=== PATIENT | male | born 1960 | race Caucasian/White ===

== ENCOUNTER 2018-04-05 12:46 | Inpatient (IN) | payer OTHER ==
[2018-04-05] MEDS ORDERED: ONDANSETRON 4 MG/2 ML VIAL ONE ×2 (13:05→18:36)
[2018-04-05] MEDS ORDERED: HYDROmorphONE/DILAUDID 1 MG/ML INJ ONE (13:05)
[2018-04-05] MEDS ORDERED: HYDROmorphONE/DILAUDID 2 MG/ML INJ IVP ONE (13:06)
[2018-04-05] MEDS ORDERED: NS 1,000 ML IV ONE ×2 (13:06→13:26)
[2018-04-05] MEDS ORDERED: ONDANSETRON 4 MG/2 ML VIAL IVP ONE (13:06)
--- NOTE | 2018-04-05 13:26 | EDPHY ---
HPI/HX/ROS/PE/MDM Narrative: CHIEF COMPLAINT: Abdominal pain, groin pain HPI: The patient is a 57 y/o male arriving with his complaining of severe constant right lower quadrant abdominal pain and groin pain onset last night. No fever, urinary symptoms, vomiting, diarrhea. Dr. Zimmerman, surgeon, assessed patient in the office and believes patient has an incarcerated hernia and needs to be taken to surgery. Dr. Zimmerman does not recommend imaging and will admit patient with plan to take him to the OR as soon as there is an available slot today. No history of diabetes, cardiac disease, hypertension. REVIEW OF SYSTEMS: A comprehensive 10 system review of systems is otherwise negative aside from elements mentioned in the history of present illness. PMH: Denies SOCIAL HISTORY: at bedside. Lives in [place]. Employed. PHYSICAL EXAM: General:Patient is alert, appears uncomfortable. ENT:Eyes are normal to inspection. ENT inspection normal. Neck: Normal inspection. Full range of motion. Respiratory:No respiratory distress. Breath sounds normal bilaterally. Cardiovascular: Regular rate and rhythm. Strong peripheral pulses. Normal cap refill. Abdomen:The abdomen is nontender to palpation. There are no peritoneal signs. : Right inguinal region intensely swollen and tender to palpation. Back: Normal to inspection. No tenderness to palpation. Skin: Normal color. Patchy erythematous rash primarily to right medial thigh also extending to left medial thigh and RLQ. Warm and dry. Extremities: Normal appearance. Full range of motion. Neuro: Oriented x3. Normal motor function. Normal sensory function. ED Course: This is an uncomfortable-appearing 57 y/o male with no reported prior medical history who presents with acute onset constant RLQ/groin pain. Dr. Zimmerman has already assessed patient and believes he has an incarcerated hernia that will require surgery today. The patient's right inguinal region is intensely swollen and tender to palpation. There are patchy erythematous areas along medial thighs and lower abdomen as well. Consulted with Dr. Zimmerman and he plans to admit to the OR - he does not think patient requires imaging. Plan for IV, labs, and symptomatic management while in the ED. 2L IV NS, 1mg IV Dilaudid , 4mg IV Zofran ordered. Additional 50mcg IV Fentanyl ordered. - Data Points Medications Given: Discontinued Medications Hydromorphone HCl (Dilaudid) 1 mg IVP EDNOW ONE Stop: 04/05/18 13:07 Last Admin: 04/05/18 13:08 Dose: 1 mg Sodium Chloride (Ns) 1,000 mls @ 0 mls/hr IV ONCE ONE PRN Reason: Wide Open Stop: 04/05/18 13:07 Last Admin: 04/05/18 13:08 Dose: 1,000 mls Ondansetron HCl (Zofran) 4 mg IVP EDNOW ONE Stop: 04/05/18 13:07 Last Admin: 04/05/18 13:08 Dose: 4 mg General Time Seen by Provider: 04/05/18 12:50 Initial Vital Signs: Initial Vital Signs Temperature (C) 37.3 C 04/05/18 12:55 Heart Rate 104 H 04/05/18 12:55 Respiratory Rate 16 04/05/18 12:55 Blood Pressure 147/85 H 04/05/18 12:55 O2 Sat (%) 92 04/05/18 12:55 O2 Delivery Mode Room Air O2 (L/minute) 3 Allergies/Adverse Reactions: No Known Allergies Allergy (Verified 04/05/18 13:38) Home Medications: Medication Instructions Recorded Ibuprofen [Motrin (*)] 200 mg PO TID PRN 04/05/18 oxyCODONE IR [Oxycodone Ir (*)] 5 - 10 mg PO Q4HRS PRN #30 tab 04/06/18 Departure - Departure Disposition: [facility] Inpatient Acute Clinical Impression: Inguinal pain Qualifiers: Laterality: right Qualified Code(s): R10.31 - Right lower quadrant pain Condition: Fair Report Scribed for: Alberto Olivera Report Scribed by: Krystal Shah Date of Report: 04/05/18 Time of Report: 13:26 Physician Review and Approval Statement: Portions of this note were transcribed by an ED scribe. I personally performed the history, physical exam, and medical decision making; and confirm the accuracy of the information in the transcribed note.
[2018-04-05] MEDS: fentaNYL 100 MCG/2 ML INJ IVP PRN ×3 (13:29→20:37)
--- NOTE | 2018-04-05 13:49 | PDGENHP ---
History and Physical - Chief Complaint Right groin pain and vomiting - History of Present Illness This is a 49-year-old gentleman with a history of left inguinal hernia repaired many years ago who presents with 3 months history of a right groin bulge. Acute exacerbation of this size now going into the scrotum unable to reduce with pain and vomiting. Minimal flatus and bowel movement over the last 12 hr. Patient said the symptoms started last night and of gotten progressively worse. He has pain on any movement. He has been able to urinate just a little bit today. Past medical history is not significant. Past surgical history includes laparotomy for trauma with splenectomy as well as left inguinal hernia repair. History Information - Allergies/Home Medication List Allergies/Adverse Reactions: No Known Allergies Allergy (Verified 04/05/18 13:38) Home Medications: Ibuprofen [Motrin (*)] 200 mg PO TID PRN 04/05/18 [Last Taken Unknown] I have personally reviewed and updated: family history, medical history, social history, surgical history - Past Medical History no pertinent PMH - Surgical History Reports: hernia repair (Left inguinal, splenectomy for trauma) - Family History Positive for: non-pertinent - Social History Smoking Status: Current every day smoker Alcohol Use: Other (3 times a week after work) Review of Systems Review of Systems: ROS: 2-9 pt reviewed & negative except for what was stated in HPI & below Constitutional: Denies: fever, weight loss Gastrointestinal: Reports: vomitting, abdominal pain Genitourinary: Reports: pain Muscolosketal: Reports: no symptoms Skin: Reports: rash Neurological: Reports: no symptoms Hematologic/Lymphatic: Reports: no symptoms Physical Exam Physical Exam: Alert obvious distress due to right groin pain. Sclerae anicteric Oropharynx moist, edentulous Regular rate and rhythm Clear to auscultation bilaterally Abdomen mildly distended rash on the left side of his abdomen, no hepatosplenomegaly Right groin hernia incarcerated tender to palpation unable to reduce No left groin hernia Bilateral pedal edema with varices Right upper leg rash hives no mottling Normal affect and mood Temp Pulse Resp BP Pulse Ox 37.3 C 97 18 155/98 H 98 04/05/18 12:55 04/05/18 13:42 04/05/18 13:42 04/05/18 13:42 04/05/18 13:42 O2 (L/minute) 2 Lab Data & Imaging Review Awaiting CBC and chemistry profile Imaging Review: No images required Assessment & Plan Assessment: Inguinal pain (Acute) Incarcerated right inguinal hernia Tobacco use disorder Bilateral pedal edema Plan: Emergency exploration likely right coring hernia repair. Possible bowel resection and laparotomy have been outlined with the patient. The risks benefits and alternatives been outlined to the patient clearly. All questions were answered. Verbal confirmation of understanding prior to written consent had been obtained.
[2018-04-05] MEDS ORDERED: ceFAZolin 2 GM/DEXTROSE 100 ML IV ONE (13:50)
[2018-04-05] MEDS ORDERED: HYDROmorphONE/DILAUDID 1 MG/ML INJ IVP PRN (13:51)
[2018-04-05] MEDS ORDERED: LR 1,000 ML IV SCH ×2 (14:00→20:00)
[2018-04-05 14:26] LABS: PLATELET COUNT 380 10^3/uL (150-400)
[2018-04-05] MEDS ORDERED: LR 1,000 ML IV ONE (15:49)
[2018-04-05] MEDS ORDERED: LIDOCAINE 1% 300 MG/30 ML SDV ONE (16:03)
[2018-04-05] MEDS ORDERED: BUPIVACAINE 0.5% 30 ML SDV ONE (16:03)
[2018-04-05] MEDS ORDERED: MIDAZOLAM 2 MG/2 ML VIAL IVP ONE (16:05)
--- NOTE | 2018-04-05 16:05 | PDANEPAE ---
ANE History of Present Illness strangulated hernia right inguinal ANE Past Medical History - Cardiovascular History Hx Hypertension: No Hx Arrhythmias: No Hx Chest Pain: No Hx Coronary Artery / Peripheral Vascular Disease: No Hx CHF / Valvular Disease: No Hx Palpitations: No - Pulmonary History Hx COPD: No Hx Asthma/Reactive Airway Disease: No Hx Recent Upper Respiratory Infection: No Hx Oxygen in Use at Home: No Hx Sleep Apnea: No Sleep Apnea Screening Result - Last Documented: Negative - Endocrine History Hx Diabetes: No Hypothyroid: No Hyperthyroid: No Obesity: mild - Renal History Hx Renal Disorders: No - Liver History Hx Hepatic Disorders: No - Neurological & Psychiatric Hx Hx Neurological and Psychiatric Disorders: No - Cancer History Hx Cancer: No - Congenital Disorder History Hx Congenital Disorders: No - GI History Hx Gastrointestinal Disorders: No - Chronic Pain History Chronic Pain: No - Surgical History Prior Surgeries: left inguinal hernia ANE Review of Systems Review of systems is: negative Review of Systems: - Exercise capacity METS (RN): 4 METS ANE Patient History - Allergies Allergies/Adverse Reactions: No Known Allergies Allergy (Verified 04/05/18 13:38) - Home Medications Home medications: home medication list seen and reviewed Home Medications: Ibuprofen [Motrin (*)] 200 mg PO TID PRN 04/05/18 [Last Taken 04/04/18] - NPO status NPO Status: no food or drink >8 hours NPO Since - Liquids (Date): 04/05/18 NPO Since - Liquids (Time): 07:00 NPO Since - Solids (Date): 04/04/18 NPO Since - Solids (Time): 20:00 - Anes Hx Anes Hx: no prior problems - Smoking Hx Smoking Status: Current every day smoker Marijuana use: No - Alcohol Use Alcohol Use: Occasionally - Family Anes Hx Family Anes Hx: none ANE Labs/Vital Signs - Labs Result Diagrams: 04/05/18 13:05 04/05/18 13:05 - Vital Signs Blood Pressure: 139/96 Heart Rate: 107 Respiratory Rate: 18 O2 Sat (%): 92 Height: 177.8 cm Weight: 106.594 kg ANE Physical Exam - Airway Neck exam: FROM Mallampati Score: Class 2 Mouth exam: normal dental/mouth exam - Pulmonary Pulmonary: no respiratory distress, clear to auscultation - Cardiovascular Cardiovascular: regular rate and rhythym, no murmur, rub, or gallop - ASA Status ASA Status: II, E ANE Anesthesia Plan Anesthesia Plan: general endotracheal anesthesia
[2018-04-05] MEDS ORDERED: fentaNYL 250 MCG/5 ML INJ ONE (17:39)
[2018-04-05] MEDS ORDERED: PROPOFOL 200 MG/20 ML VIAL ONE (17:39)
[2018-04-05] MEDS ORDERED: LIDOCAINE 2% 5 ML SDV ONE (17:41)
[2018-04-05] MEDS ORDERED: DEXAMETHASONE 4 MG/ML VIAL ONE (17:50)
--- NOTE | 2018-04-05 18:07 | POSTANESTH ---
Post Anesthetic Evaluation Cardiovascular Status: Normal, Stable Respiratory Status: Normal, Stable Level of Consciousness/Mental Status: Can Participate in Eval Pain Control: Adequate, Prn Tx Ordered Nausea/Vomiting Control: Adequate, Prn Tx Ordered Complications Possibly Related to Anesthesia: None Noted
[2018-04-05] MEDS ORDERED: DEXMEDETOMIDINE HCL 200 MCG/2 ML VIAL IV ONE (18:24)
[2018-04-05] MEDS ORDERED: KETOROLAC 30 MG/1 ML SDV ONE (19:10)
[2018-04-05] MEDS ORDERED: NEOSTIGMINE METHYLSULFATE 5 MG/5 ML SYR ONE (19:25)
[2018-04-05] MEDS ORDERED: GLYCOPYRROLATE 0.2 MG/1 ML VIAL ONE (19:25)
[2018-04-05] MEDS ORDERED: ZOLPIDEM TARTRATE 5 MG TAB PO PRN (19:40)
[2018-04-05] MEDS ORDERED: ONDANSETRON 4 MG/2 ML VIAL IVP PRN (19:40)
[2018-04-05] MEDS ORDERED: NALOXONE HCL 0.4 MG/ML INJ IVP PRN (19:42)
--- NOTE | 2018-04-05 19:42 | POSTOPPROG ---
Post Op Note Date of Operation: 04/05/18 Surgeon: Joni Zimmerman Can Piler: Ciara North PAC Anesthesiologist: Jenae Anesthesia: GET(General Endotracheal) Pre-op Diagnosis: Incarcerated inguinal hernia Post-op Diagnosis: same Procedure: Open right inguinal hernia repair Findings: viable sm and bladder Inf/Abcess present in the surg proc area at time of surgery?: No
[2018-04-05] MEDS ORDERED: fentaNYL 100 MCG/2 ML INJ ONE (19:50)
[2018-04-05] MEDS ORDERED: HYDROmorphONE/DILAUDID 2 MG/ML INJ ONE (19:50)
[2018-04-05] MEDS: HYDROmorphONE/DILAUDID 2 MG/ML INJ IVP PRN ×4 (19:54→20:37)
[2018-04-05] MEDS: oxyCODONE IR 5 MG TAB PO PRN (20:03)
[2018-04-05] MEDS ORDERED: oxyCODONE IR 5 MG TAB ONE (20:03)
[2018-04-05] MEDS: KETOROLAC 15 MG/1 ML SDV IVP SCH (23:19)
[2018-04-06] MEDS: oxyCODONE IR 5 MG TAB PO PRN ×5 (01:09→21:35)
--- NOTE | 2018-04-06 03:47 | GOP ---
[f rep st] OPERATIVE REPORT DATE OF OPERATION: SURGEON: Joni Zimmerman MD CAMPUS SAFETY OFFICER: Ciara North PA-C. ANESTHESIA: General endotracheal anesthesia was used. ANESTHESIOLOGIST: Dr. Emanuel. PREOPERATIVE DIAGNOSIS: Incarcerated inguinal hernia. POSTOPERATIVE DIAGNOSIS: Incarcerated inguinal hernia with small-bowel and bladder within the hernia sac. There is congestion of the bowel, but there is no ischemic process apparent. PROCEDURE PERFORMED: Open inguinal hernia repair with Phasix mesh. FINDINGS: Findings again are viable small-bowel and bladder within a 3 cm indirect inguinal hernia. SPECIMENS: There were no specimens. INDICATIONS: This is a 57-year-old gentleman who presents to the hospital with incarcerated inguinal hernia, possible skin strangulation, white blood cell count of 25,000 with a left shift. Of note, h e also has an elevated potassium of 5.3 and glucose of 194. The patient claims not to have any previ ous medical problems. DESCRIPTION OF PROCEDURE: The patient was brought into the operating room. After induction of endot conrado anesthesia in supine position the abdomen was prepped with chlorhexidine and the scrotum and perineum were prepped with Betadine. Time-out procedure was then performed according to institutiona l standards. Local anesthetic was infused in the skin and subcutaneous tissues as well as a field bl ock on the right side. Open incision was made, deepened with electrocautery. Hyperemia of the tissues was noted. The herni a sac is contained in the tunic vaginalis with the testicle on the right. This was all brought in th e field of dissection. The testicle is viable and it is dissected from the tunica vaginalis and from the cord structures with careful sharp and electrocautery dissection. After inspecting the hernia contents, the bladder was then reintroduced to the abdomen after which th e small-bowel was inspected and allowed to pink up. There was no obvious ischemia that was noted. A lthough the vessels are somewhat congested, they are still patent. There are pulses within the mesen andrea and the bowel pinked up nicely. It is then reintroduced into the abdominal cavity. The defect is not able to be closed and a bridge Phasix mesh was then used to close the gap in a Lich tenstein fashion. Then 2-0 Vicryl was used to approximate it to the pubic tubercle, the shelving edg e of the inguinal ligament, the transversalis muscle superiorly, and the leaves are reapproximated ar ound the cord to allow the passage of 1 finger tip, but not too tight to cause strangulation of the c ord. After inspection, the testicle was reintroduced to the scrotum. Hemostasis assured. Needle, i nstrument, and sponge counts were verified to be correct. The incision was closed in layers using 2-0 and 3-0 Polysorb and 4-0 Monocryl. Dermabond was applied . The patient awakened, extubated, and taken to the recovery room in stable condition. No immediate co mplications. /[id number]/MODL
[2018-04-06] MEDS: KETOROLAC 15 MG/1 ML SDV IVP SCH ×4 (05:07→23:02)
--- NOTE | 2018-04-06 09:01 | SOAPPROG ---
SOAP Progress Note Assessment/Plan: Assessment/Plan: Postop day 1. Status post open right inguinal hernia repair with face 6 mesh for incarceration of the bladder and small bowel within the internal were hernia defect. The patient is doing fairly well. He does have pain as expected. His abdominal pain has decreased overnight. And he is tolerating clear liquids. Abdomen soft distended. His P nontender no peritoneal signs. A groin incision clean dry and intact expected swelling and minimal ecchymosis Extremities with mild edema Overall doing well status post right inguinal herniorrhaphy Plan discharge tomorrow. Prescriptions written. May be able to go later today if pain is controlled. 04/06/18 08:59 Objective: Vital Signs Temp Pulse Resp BP Pulse Ox 36.6 C 82 20 134/88 H 94 04/06/18 07:38 04/06/18 07:38 04/06/18 07:38 04/06/18 07:38 04/06/18 07:38 04/05/18 04/06/18 04/07/18 05:59 05:59 05:59 Intake Total 2420 557 Output Total 400 Balance 2020 557 PT REJ 04/05/18 13:05 INR REJ 04/05/18 13:05 ICD10 Worksheet Patient Problems: Problems Problem Status Onset Inguinal pain Acute
--- NOTE | 2018-04-06 11:13 | ASMTCMCOM ---
CM Note CM Note Notes: 04/06/2018 Case Management Note Pt admitted for incarcerated hernia. Surgery yesterday. There are no case management d/c needs identified d/t pt age, marital status, employment status and independence with ADL's prior to admission. There are no therapy evals ordered at this time. Case Management d/c poc: Independent with follow up as directed. Case Management available if needs change. Date Signed: 04/06/2018 11:12 AM Electronically Signed By:Wendy Fields RN
[2018-04-06] MEDS: HYDROmorphONE/DILAUDID 1 MG/ML INJ IVP PRN ×2 (14:29→21:32)
[2018-04-06] MEDS: METOCLOPRAMIDE 10 MG/2 ML VIAL IVP PRN (21:32)
[2018-04-07] MEDS: oxyCODONE IR 5 MG TAB PO PRN ×5 (03:26→22:05)
[2018-04-07] MEDS: METOCLOPRAMIDE 10 MG/2 ML VIAL IVP PRN ×2 (03:35→19:15)
[2018-04-07] MEDS: KETOROLAC 15 MG/1 ML SDV IVP SCH ×4 (05:47→23:45)
--- NOTE | 2018-04-07 07:55 | SOAPPROG ---
SOAP Progress Note Assessment/Plan: Assessment:c/o pain - min ambulation yesterday. nausea overnight. min po. avss. comfortable when lying still. incis with notable erythema today and approp swelling/induration. s/p incar RIH repair. postop ileus. restart IVF. add ancef for possible incis erythema (vs evolving ecchymosis). not ready for discharge. cont supportive care. Plan: 04/07/18 07:54 Objective: Vital Signs Temp Pulse Resp BP Pulse Ox 36.6 C 89 16 143/93 H 88 L 04/07/18 07:51 04/07/18 07:51 04/07/18 07:51 04/07/18 07:51 04/07/18 07:51 04/06/18 04/07/18 04/08/18 05:59 05:59 05:59 Intake Total 2420 3057 Output Total 400 Balance 2019 3057 PT REJ 04/05/18 13:05 INR REJ 04/05/18 13:05 ICD10 Worksheet Patient Problems: Problems Problem Status Onset Inguinal pain Acute
[2018-04-07] MEDS ORDERED: D5W 1/2 NS W/ 20 KCl/L 1,000 ML IV SCH (08:00)
[2018-04-07] MEDS: NS 1,000 ML IV SCH ×2 (09:08→18:43)
[2018-04-07] MEDS: ceFAZolin 2 GM/DEXTROSE 100 ML IV SCH ×3 (09:08→21:56)
[2018-04-07] MEDS: ENOXAPARIN 40 MG/0.4 ML SYR SC SCH (09:09)
[2018-04-07] MEDS: HYDROmorphONE/DILAUDID 1 MG/ML INJ IVP PRN ×4 (09:25→18:43)
--- NOTE | 2018-04-07 11:42 | PDMN ---
Medical Necessity Medical necessity: MCG: M200 ileus: pt admitted abd pain OP: open R inguinal hernia repair- POD# 2 - difficult evening, with increased pain min pO, min. ambulation, N. overnight, poss post op ileus, poss incision erythema ( vs. evolving ecchymosis) restart IVF, IV ABX , additional supportive care- status changed to INPT 04/07/18 for ongoing med nec > 2 MN. pt not ready for DC.
[2018-04-07] MEDS: ONDANSETRON 4 MG/2 ML VIAL IVP PRN (22:01)
[2018-04-07] MEDS: PROMETHAZINE HCL 25 MG/ML INJ IVP PRN (23:51)
[2018-04-08] MEDS: oxyCODONE IR 5 MG TAB PO PRN ×5 (02:07→19:37)
[2018-04-08] MEDS: KETOROLAC 15 MG/1 ML SDV IVP SCH ×4 (05:55→23:11)
[2018-04-08] MEDS: ceFAZolin 2 GM/DEXTROSE 100 ML IV SCH ×3 (05:56→22:19)
[2018-04-08] MEDS: ONDANSETRON 4 MG/2 ML VIAL IVP PRN ×2 (06:02→22:19)
[2018-04-08] MEDS: ENOXAPARIN 40 MG/0.4 ML SYR SC SCH (08:14)
--- NOTE | 2018-04-08 08:23 | SOAPPROG ---
SOAP Progress Note Assessment/Plan: Assessment:nausea and vomiting last casimiro - feeling slightly better today. + flatus. AVSS. comfortable, skin color better. abd soft, dist. incis with less erythema and swelling today. slow progress s/p incarc RIH repair. cont supportive care today. cont Ancef for now - will reassess need for continuation in am. anticipate dc tomorrow if tolerating po/ileus further resolved. c/o pain - min ambulation yesterday. nausea overnight. min po. avss. comfortable when lying still. incis with notable erythema today and approp swelling/induration. s/p incar RIH repair. postop ileus. restart IVF. add ancef for possible incis erythema (vs evolving ecchymosis). not ready for discharge. cont supportive care. Plan: 04/07/18 07:54 04/08/18 08:21 Objective: Vital Signs Temp Pulse Resp BP Pulse Ox 36.8 C 75 18 120/86 H 94 04/08/18 07:33 04/08/18 07:33 04/08/18 07:33 04/08/18 07:33 04/08/18 07:33 04/07/18 04/08/18 04/09/18 05:59 05:59 05:59 Intake Total 2931 Output Total 600 Balance 2331 PT REJ 04/05/18 13:05 INR REJ 04/05/18 13:05 ICD10 Worksheet Patient Problems: Problems Problem Status Onset Inguinal pain Acute
[2018-04-09] MEDS: oxyCODONE IR 5 MG TAB PO PRN ×5 (01:26→23:57)
[2018-04-09] MEDS: ONDANSETRON 4 MG/2 ML VIAL IVP PRN (03:27)
[2018-04-09] MEDS: KETOROLAC 15 MG/1 ML SDV IVP SCH ×4 (05:07→23:56)
[2018-04-09] MEDS: ceFAZolin 2 GM/DEXTROSE 100 ML IV SCH ×3 (06:34→22:43)
[2018-04-09] MEDS: ENOXAPARIN 40 MG/0.4 ML SYR SC SCH (08:03)
[2018-04-09] MEDS: PROMETHAZINE HCL 25 MG/ML INJ IVP PRN ×2 (08:03→19:30)
[2018-04-09] MEDS: HYDROmorphONE/DILAUDID 1 MG/ML INJ IVP PRN ×2 (08:03→22:43)
--- NOTE | 2018-04-09 09:57 | ASMTCMCOM ---
CM Note CM Note Notes: CM reviewed chart. PT worked w/ pt today and has cleared him to d/c home without any needs. CM available for changes. Plan: Independent Date Signed: 04/09/2018 09:56 AM Electronically Signed By:KWADWO Fuentes
--- NOTE | 2018-04-09 16:27 | SOAPPROG ---
SOAP Progress Note Assessment/Plan: Assessment/Plan: Postop day 4. Status post open right inguinal hernia repair with Phasix mesh for incarceration of the bladder and small bowel within the internal were hernia defect. The patient is doing fairly well. He does have pain as expected. His abdominal pain has decreased overnight. And he is tolerating clear liquids. Abdomen soft distended. ABD: nontender no peritoneal signs. Groin incision clean dry and intact expected swelling and minimal ecchymosis Extremities with mild edema Overall doing well status post right inguinal herniorrhaphy Plan discharge tomorrow. Prescriptions written. May be able to go later today if pain is controlled. 04/06/18 08:59 04/09/18 16:26 Objective: Vital Signs Temp Pulse Resp BP Pulse Ox 37.3 C 72 18 145/75 H 92 04/09/18 15:59 04/09/18 15:59 04/09/18 15:59 04/09/18 15:59 04/09/18 15:59 04/08/18 04/09/18 04/10/18 05:59 05:59 05:59 Intake Total 2931 100 300 Output Total 600 400 Balance 2331 -300 300 PT REJ 04/05/18 13:05 INR REJ 04/05/18 13:05 ICD10 Worksheet Patient Problems: Problems Problem Status Onset Inguinal pain Acute
[2018-04-10] MEDS: oxyCODONE IR 5 MG TAB PO PRN ×3 (04:17→15:29)
[2018-04-10] MEDS ORDERED: POTASSIUM CL 20 MEQ TAB PO ONE ×2 (06:15→10:00)
[2018-04-10 06:30] LABS: PLATELET COUNT 358 10^3/uL (150-400)
[2018-04-10] MEDS ORDERED: MAGNESIUM SULF 2 GM/WATER 50 ML IV ONE (06:30)
[2018-04-10] MEDS: KETOROLAC 15 MG/1 ML SDV IVP SCH ×2 (06:31→12:10)
[2018-04-10] MEDS: ceFAZolin 2 GM/DEXTROSE 100 ML IV SCH ×2 (06:31→14:39)
--- NOTE | 2018-04-10 06:48 | PDHOSCONS ---
History and Physical - Chief Complaint Tachycardia - History of Present Illness 57 yo M admitted for R inguinal hernia repair developed brief episode of SVT on 04/10; hospital medicine consulted for evaluation of this. The patient denies prior cardiac history or history of arrhythmias. However, he does not see his doctor frequently. He is a long-time smoker (20+ years) and obese. He tells me he was having mild GI discomfort, possibly indigestion, when alarms went off and many team members ran into the room. He denies any significant symptoms during this period, including chest pain, diaphoresis, and shortness of breath. Per report the patient exhibited heart rate of ~220, which spontaneously terminated with belching. Unfortunately the rhythm was not captured on telemetry. An ECG obtained after the episode demonstrates sinus rhythm and bifascicular block. During my evaluation the patient is asymptomatic. History Information - Allergies/Home Medication List Allergies/Adverse Reactions: No Known Allergies Allergy (Verified 04/05/18 13:38) Home Medications: Ibuprofen [Motrin (*)] 200 mg PO TID PRN 04/05/18 [Last Taken 04/04/18] I have personally reviewed and updated: family history, medical history - Past Medical History no pertinent PMH - Surgical History Reports: hernia repair (Left inguinal, splenectomy for trauma) - Family History Positive for: CAD (Mother in her 80's recently had stent placed) - Social History Smoking Status: Current every day smoker Alcohol Use: Occasionally Review of Systems Review of Systems: Physical Exam Physical Exam: Temp Pulse Resp BP Pulse Ox 36.7 C 80 20 139/94 H 91 L 04/10/18 06:12 04/10/18 06:12 04/10/18 06:12 04/10/18 06:12 04/10/18 06:12 O2 (L/minute) 1 Lab Data & Imaging Review 04/10/18 05:40 04/10/18 05:40 WBC 9.44 10^3/uL (3.80-9.50) 04/10/18 05:40 RBC 5.23 10^6/uL (4.40-6.38) 04/10/18 05:40 Hgb 17.1 g/dL (13.7-17.5) 04/10/18 05:40 POC Hgb 18.4 gm/dL (13.7-17.5) H 04/10/18 05:41 Hct 50.1 % (40.0-51.0) 04/10/18 05:40 POC Hct 54 % (40-51) H 04/10/18 05:41 MCV 95.8 fL (81.5-99.8) 04/10/18 05:40 MCH 32.7 pg (27.9-34.1) 04/10/18 05:40 MCHC 34.1 g/dL (32.4-36.7) 04/10/18 05:40 RDW 13.4 % (11.5-15.2) 04/10/18 05:40 Plt Count 358 10^3/uL (150-400) 04/10/18 05:40 MPV 10.2 fL (8.7-11.7) 04/10/18 05:40 Neut % (Auto) 63.2 % (39.3-74.2) 04/10/18 05:40 Lymph % (Auto) 15.6 % (15.0-45.0) 04/10/18 05:40 Bailey % (Auto) 19.5 % (4.5-13.0) H 04/10/18 05:40 Eos % (Auto) 1.1 % (0.6-7.6) 04/10/18 05:40 Baso % (Auto) 0.2 % (0.3-1.7) L 04/10/18 05:40 Nucleat RBC Rel Count 0.0 % (0.0-0.2) 04/10/18 05:40 Absolute Neuts (auto) 5.97 10^3/uL (1.70-6.50) 04/10/18 05:40 Absolute Lymphs (auto) 1.47 10^3/uL (1.00-3.00) 04/10/18 05:40 Absolute Monos (auto) 1.84 10^3/uL (0.30-0.80) H 04/10/18 05:40 Absolute Eos (auto) 0.10 10^3/uL (0.03-0.40) 04/10/18 05:40 Absolute Basos (auto) 0.02 10^3/uL (0.02-0.10) 04/10/18 05:40 Absolute Nucleated RBC 0.00 10^3/uL (0-0.01) 04/10/18 05:40 Immature Gran % 0.4 % (0.0-1.1) 04/10/18 05:40 Immature Gran # 0.04 10^3/uL (0.00-0.10) 04/10/18 05:40 RBC/WBC/PLT Morphology TNP 04/10/18 05:40 Platelet Estimate TNP 04/10/18 05:40 PT REJ 04/05/18 13:05 INR REJ 04/05/18 13:05 APTT REJ 04/05/18 13:05 POC Sodium 135 mEq/L (135-145) 04/10/18 05:41 Sodium 132 mEq/L (135-145) L 04/10/18 05:40 POC Potassium 3.3 mEq/L (3.3-5.0) 04/10/18 05:41 Potassium 3.8 mEq/L (3.5-5.2) 04/10/18 05:40 POC Chloride 96 mEq/L (97-110) L 04/10/18 05:41 Chloride 97 mEq/L (97-110) 04/10/18 05:40 Carbon Dioxide 25 mEq/l (22-31) 04/10/18 05:40 POC Total CO2 24 mEq/L (22-31) 04/10/18 05:41 Anion Gap 10 mEq/L (6-14) 04/10/18 05:40 POC BUN 16 mg/dL (7-23) 04/10/18 05:41 BUN 18 mg/dL (7-23) 04/10/18 05:40 Creatinine 0.6 mg/dL (0.7-1.3) L 04/10/18 05:40 POC Creatinine 0.5 mg/dL (0.7-1.3) L 04/10/18 05:41 Estimated GFR > 60 04/10/18 05:40 Glucose 99 mg/dL (70-100) 04/10/18 05:40 POC Glucose 101 mg/dL (70-100) H 04/10/18 05:41 Calcium 8.6 mg/dL (8.5-10.4) 04/10/18 05:40 Magnesium 1.8 mg/dL (1.6-2.3) 04/10/18 05:40 Troponin I 0.034 ng/mL (0.000-0.034) 04/10/18 05:40 Visualized and Interpreted EKG results: Yes EKG Interpretation: Positive for: other (Bifascicular block) Assessment & Plan Assessment: 57 yo M admitted for repair of R inguinal hernia developed episode of SVT on . Plan: 1. SVT - Unfortunately, rhythm was not captured on telemetry or ECG prior to spontaneous termination. Noting rate of ~220 and spontaneous termination with vagal maneuver, AVRT or AVNRT are likely. He denies prior cardiac history. ECG suggests significant conduction disease with evidence of bifascicular block. - Monitor on telemetry - Maintain K>4, Mg>2 - Check cardiac enzymes, repeat ECG now - Will order echocardiogram for further evaluation - Noting spontaneous termination during first event, adenosine would be reasonable to try if SVT recurs 2. R inguinal hernia - s/p open repair on 04/05. - Management per surgery primary Thank you very much for this consult, the hospital medicine service will follow along with you.
--- NOTE | 2018-04-10 07:18 | SOAPPROG ---
SOAP Progress Note Assessment/Plan: Assessment:patient transferred to tele today am - isolated episode of self limited tachycardia (220) noted by nursing staff. patient notes that he belched and per nursing staff, his rate converted back to 70. he denied any chest pain or SOB during the episode. he was feeling well throughout the day and casimiro. he has had multiple episodes of otherwise asympt belching. mult bm. no abd c/o. approp incis pain. afebrile. 140/90 80 20 91% sat. up in bed, comfortable. heart reg. lungs with mild left basilar crackles. abd soft. incis clean. no erythema. swelling improved. k3.3. mg 1.8 (supple in progress x2). Tn neg. ECHO pending. EKG with bifasicular block. Isolated episode postop SVT (undocumented other than pulse ox). Apprec hospitalist consult. ECHO pending. Serial Tn. Final reccs pending course today. nausea and vomiting last casimiro - feeling slightly better today. +flatus. AVSS. comfortable, skin color better. abd soft, dist. incis with less erythema and swelling today. slow progress s/p incarc RIH repair. cont supportive care today. cont Ancef for now - will reassess need for continuation in am. anticipate dc tomorrow if tolerating po/ileus further resolved. c/o pain - min ambulation yesterday. nausea overnight. min po. avss. comfortable when lying still. incis with notable erythema today and approp swelling/induration. s/p incar RIH repair. postop ileus. restart IVF. add ancef for possible incis erythema (vs evolving ecchymosis). not ready for discharge. cont supportive care. Plan: 04/07/18 07:54 04/08/18 08:21 04/10/18 07:16 04/10/18 07:18 Objective: Vital Signs Temp Pulse Resp BP Pulse Ox 36.7 C 80 20 139/94 H 91 L 04/10/18 06:12 04/10/18 06:12 04/10/18 06:12 04/10/18 06:12 04/10/18 06:12 Laboratory Results 04/10/18 05:40 04/10/18 05:40 04/09/18 04/10/18 04/11/18 05:59 05:59 05:59 Intake Total 100 1330 Output Total 400 Balance -300 1330 PT REJ 04/05/18 13:05 INR REJ 04/05/18 13:05 ICD10 Worksheet Patient Problems: Problems Problem Status Onset Inguinal pain Acute
[2018-04-10] MEDS: ENOXAPARIN 40 MG/0.4 ML SYR SC SCH (08:22)
[2018-04-10] MEDS: HYDROmorphONE/DILAUDID 1 MG/ML INJ IVP PRN (10:33)
--- NOTE | 2018-04-10 12:51 | HOSPPROG ---
Hospitalist Progress Note Assessment/Plan: 57 yo M admitted for repair of R inguinal hernia developed episode of SVT on . Plan: 1. SVT - Unfortunately, rhythm was not captured on telemetry or ECG prior to spontaneous termination. Noting rate of ~220 and spontaneous termination with vagal maneuver, AVRT or AVNRT are likely. He denies prior cardiac history. ECG suggests significant conduction disease with evidence of bifascicular block. - Monitoring on telemetry, no significant events this AM - Maintain K>4, Mg>2 - Troponin 0.034 last evening, 0.031 this AM - TTE pending - Noting spontaneous termination during first event, adenosine would be reasonable to try if SVT recurs 2. R inguinal hernia - s/p open repair on 04/05. - Management per surgery primary Thank you very much for this consult, the hospital medicine service will follow along with you. Subjective: Patient denies any chest pain, SOB, palpitations this AM Objective: Vital Signs Temp Pulse Resp BP Pulse Ox 36.7 C 78 18 115/76 91 L 04/10/18 11:56 04/10/18 11:56 04/10/18 11:56 04/10/18 11:56 04/10/18 11:56 Laboratory Results 04/10/18 05:40 04/10/18 05:40 04/09/18 04/10/18 04/11/18 05:59 05:59 05:59 Intake Total 100 1330 400 Output Total 400 Balance -300 1330 400 PT REJ 04/05/18 13:05 INR REJ 04/05/18 13:05 - Physical Exam Constitutional: no apparent distress Eyes: PERRL Ears, Nose, Mouth, Throat: moist mucous membranes Cardiovascular: regular rate and rhythym Respiratory: no respiratory distress Gastrointestinal: soft, non-tender abdomen Skin: warm Musculoskeletal: full muscle strength Neurologic: AAOx3 Psychiatric: interacting appropriately ICD10 Worksheet Patient Problems: Problems Problem Status Onset Inguinal pain Acute
--- NOTE | 2018-04-10 14:01 | ECHO ---
[email or web address] [address] Main: [phone] Fax: Transthoracic Echocardiogram Name: GAYE HALE MR#: [id number] Study Date: 04/10/2018 Study Time: 07:33 AM Date of : 1960 Age: 57 year(s) Height: 177.8 cm (70 in.) Weight: 106.6 kg (235 lb.) BSA: 2.24 m2 Gender: Male Examination: Echo Indication: SVT post op hernia surgery Image Quality: Technically Difficult Contrast: Requested by: Luke Wick BP: 139 mmHg/94 mmHg Heart Rate: Rhythm: Indication: SVT post op hernia surgery Procedure Staff Undercutter: Faye Quijano NATASHA Reading Physician: Hortensia Jackson MD Requesting Provider: Conclusions: Normal size left ventricle. Mild concentric LV hypertrophy. Global hypercontractility of the left ventricle. The ejection fraction is estimated to be 70-75 %. No regional wall motion abnormality. Normal size right ventricle. Normal RV function. No significant valvular disease. No prior echo Measurements: Chambers Valvular Assessment AV/MV Valvular Assessment TV/PV Normal Normal Normal Name Value Range Name Value Range Name Value Range Ao Magda (MM): 4.1 cm (2.2 cm-3.7 AV Vmax: 1.50 m/s (1 m/s-1.7 cm) m/s) IVSd (2D): 1.1 cm (0.6 cm-1.1 AV maxP mmHg ( - ) cm) AV meanP mmHg ( - ) LVDd (2D): 5.2 cm (4.2 cm-5.9 MV E Vmax: 0.85 m/s ( - ) cm) MV A Vmax: 1.17 m/s ( - ) LVDs (2D): 3.5 cm (2.1 cm-4 MV E/A: 0.73 ( - ) cm) LVPWd (2D): 1.2 cm (0.6 cm-1 cm) LVEF (MOD4): 84 % (>=55 %) EF Range: 70-75 % Continued Measurements: Chambers Valvular Assessment AV/MV Name Value Name Value Patient: GAYE HALE Study Date: 04/10/2018 Page 1 of 2 07:33 AM LADs: 4.7 cm MV E/E' Septal: 15.80 LADs Lon.6 cm MV E/E' Lateral: 21.80 LA Area: 21.9 cm2 LA Volume: 58 ml LA Volume Index: 25.9 ml/m2 Findings: Left Ventricle: Normal size left ventricle. Mild concentric LV hypertrophy. Global hypercontractility of the left ventricle. The ejection fraction is estimated to be 70-75 %. No regional wall motion abnormality. Unable to assess diastolic dysfunction. Right Ventricle: Normal size right ventricle. Normal RV function. Left Atrium: The left atrium is normal in size. Right Atrium: The right atrium is normal in size. Mitral Valve: The mitral valve is normal in appearance and function. Aortic Valve: The aortic valve is normal in appearance and function. Tricuspid Valve: Tricuspid valve not well visualized. Pulmonic Valve: Pulmonary valve not well visualized. Aorta: The aorta is normal. Pericardium: No pericardial effusion. (No Signature Object) Patient: GAYE HALE Study Date: 04/10/2018 Page 2 of 2 07:33 AM D:_[id number]
[2018-04-10 15:34] VITALS: BP 135/89
--- NOTE | 2018-04-10 16:53 | ASDISCHSUM ---
Discharge Information Plan Status:Home with No Needs Medically Cleared to Leave:04/09/2018 Discharge Date:04/09/2018 CM D/C Disposition:Home, Routine, Self-Care ADT D/C Disposition:Home, Routine, Self-Care Projected Discharge Date:04/09/2018 Transportation at D/C:Family Discharge Delay Reason: Follow-Up Date:04/09/2018 Discharge Slot: Final Diagnosis:inguinal hernia repair Placement Information Patient Contact Information Contact Name:DERRELL Relationship: Address:[address] Work Phone: City:[place] Alternate Phone: [facility]/Zip Code:[place] [address] Email: Financial Information Financial Class:Self-Pay Primary Plan Desc:SP UNINSURED Primary Plan Number:[id number] Secondary Plan Desc: Secondary Plan Number: Assessment Information LACE LACE Length of stay for Answers: 3 days current admission Acuity / Level of Answers: Yes Care: Did the patient have an inpatient admission? # of Emergency department Answers: 1-2 visits in the last 6 months Score: 7 Date Signed: 04/10/2018 04:52 PM Electronically Signed By:Salina Campuzano [facility] CM Progress Note CM Note CM Note Notes: 04/06/2018 Case Management Note Pt admitted for incarcerated hernia. Surgery yesterday. There are no case management d/c needs identified d/t pt age, marital status, employment status and independence with ADL's prior to admission. There are no therapy evals ordered at this time. Case Management d/c poc: Independent with follow up as directed. Case Management available if needs change. Date Signed: 04/06/2018 11:12 AM Electronically Signed By:Wendy Fields RN [facility] CM Progress Note CM Note CM Note Notes: CM reviewed chart. PT worked w/ pt today and has cleared him to d/c home without any needs. CM available for changes. Plan: Independent Date Signed: 04/09/2018 09:56 AM Electronically Signed By:KWADWO Fuentes Case Management Discharge Plan Note Case Management Discharge Discharge Order Complete? Answers: Yes Patient to Obtain Answers: Independently Medications Transportation Arranged Answers: Family/Friends Transport will Pick (Date 04/10/2018 05:00 PM & Time) Family Notified Answers: Yes Notes: by pt Discharge Comments Notes: Pt to discharge home independently with support from . No CM needs noted at this time. Spoke with pt in the room. CM available should needs change. Date Signed: 04/10/2018 04:53 PM Electronically Signed By:Salina Campuzano Intervention Information
--- NOTE | 2018-04-10 18:38 | PDDCSUM ---
Discharge Summary Discharge Summary: This is a 57-year-old gentleman who was admitted on 04/05/2018 for incarcerated inguinal hernia. Principal diagnosis incarcerated inguinal hernia Principle procedures open right inguinal hernia repair with Phasix mesh. Findings were bladder and small bowel incarcerated within the hernia defect. Secondary complications in the hospital included S CT he was transferred to telemetry unit seen in consultation by Hospital Medicine EKG shows bifascicular bundle branch block. Troponins were negative. The patient refused stress test but echocardiogram did not show any wall motion abnormalities. Hospital course: The patient had been in the admitted on the day of surgery from the office. The patient underwent urgent surgery with findings of viable bowel. He was kept for persistent nausea hypoxia and pain control. The patient was advanced in diet and activity but on the day of discharge early in the morning had an episode of SVT which resolved with vagal episode the patient belched and his heart rate went back to 78 from 200s. Patient was discharged to home tolerated diet with oxycodone for pain all questions were addressed he is to follow up in the office in 1 week he is to call with concerns regarding his surgery or hospitalization or recurrence signs of cardiac issues. The patient verbalized his understanding prior to discharge. The patient may shower. He he is to refrain from lifting greater than 25 lb. He is to call with signs of infection such as temperature greater than 101.5 inability to eat persistent nausea or pain not controlled by medication.
== END 2018-04-10 17:18 | disposition home or self-care (01) | DRG 940 ==
LOC: F3E 13:50 → OBSVTOIN 04-07 11:35 → F2W 04-10 06:05
PROVIDERS: ADMIT Surgery; ATTEND Surgery
PROC: 0YU50JZ Supplement Right Inguinal Region with Synthetic Substitute, Open Approach (ICD-10-PCS; principal; 2018-04-05 15:15)
DX: G89.18 Other acute postprocedural pain (principal); R11.0 Nausea; K40.30 Unilateral inguinal hernia, with obstruction, without gangrene, not specified as recurrent; K56.7 Ileus, unspecified; I44.60 Unspecified fascicular block; F17.210 Nicotine dependence, cigarettes, uncomplicated; E66.9 Obesity, unspecified; Z68.33 Body mass index [BMI] 33.0-33.9, adult
CPT/HCPCS: 82435-PO; 82565-PO; 82947-PO; 84132-PO; 84295-PO; 84520-PO; 85014-ER; 96374; 97116-GP; 97161-GP; C1781; G0378; J0690; J1100; J1170; J1650; J1885; J2250; J2405; J2550; J2704; J2710; J2765; J3010; J3475